=== PATIENT | female | born 1980 | race Caucasian/White ===

== ENCOUNTER 2024-03-29 10:25 | Emergency (ER) | payer BC ==
[2024-03-29] MEDS: Sodium Chloride 0.9% 10 ML Syringe FLUSH PRN (10:40)
[2024-03-29 10:50] LABS: BASOPHILS ABSOLUTE AUTO 0.1 x10-3/uL (0.0-0.1); BASOPHILS PERCENT AUTO 0.5 % (0.2-1.5); EOSINOPHILS ABSOLUTE AUTO 0.2 x10-3/uL (0.0-0.8); EOSINOPHILS PERCENT AUTO 1.9 % (0.6-8.1); HEMOGLOBIN 13.1 g/dL (11.4-15.5); LYMPHOCYTES ABSOLUTE AUTO 2.2 x10-3/uL (1.0-4.4); LYMPHOCYTES PERCENT AUTO 19.2 % (18.4-52.1); MEAN CORPUSCULAR HEMOGLOBIN 32.4 pg (23.9-33.9); MEAN CORPUSCULAR HGB CONC 33.7 g/dL (31.9-34.8); MEAN CORPUSCULAR VOLUME 96.2 fL (76.7-100.5); MEAN PLATELET VOLUME 7.8 fL (7.1-12.4); MONOCYTES ABSOLUTE AUTO 0.6 x10-3/uL (0.3-1.0); NEUTROPHILS ABSOLUTE AUTO 8.5 x10-3/uL (1.5-6.3); NEUTROPHILS PERCENT AUTO 73.4 % (30.8-76.2); PLATELET COUNT,PLT 228 x10(3)uL (151-488); RED BLOOD CELL COUNT 4.05 x10(6)uL (3.60-5.20); RED CELL DISTRIBUTION WIDTH 13.7 % (12.3-16.5); WHITE BLOOD CELL COUNT,WBC 11.6 x10-3/uL (3.0-10.3)
[2024-03-29] MEDS: Sodium Chloride 0.9% 1,000 ML IV ONE (10:52)
[2024-03-29] MEDS: LORazepam 2 MG/ML SDV IVPUSH ONE (10:52)
[2024-03-29 10:57] LABS: BLOOD UREA NITROGEN,BUN 15 mg/dL (7-18); BUN/CREATININE RATIO 21.4 (9-20); CARBON DIOXIDE,CO2 23 mmol/L (21-32); CHLORIDE,CL 105 mmol/L (100-110); CREATININE 0.7 mg/dL (0.55-1.02); ESTIMATED GFR 111 mL/min (>60); GLUCOSE RANDOM 119 mg/dL (80-116); POTASSIUM,K 3.9 mmol/L (3.5-5.3); SODIUM,NA 140 mmol/L (135-145)
[2024-03-29 11:08] LABS: A/G RATIO 1.1; ALANINE AMINOTRANSFERASE,ALT 28 U/L (12-36); ALKALINE PHOSPHATASE 86 IU/L (56-112); ASPARTATE AMNIOTRANSFERASE,AST 20 IU/L (5-25); BILIRUBIN TOTAL 0.5 mg/dL (0.1-1.3); PROTEIN TOTAL,TP 7.6 g/dL (6.0-8.0)
[2024-03-29] MEDS: Ondansetron 4 MG/2 ML SDV IVPUSH ONE (11:36)
[2024-03-29 13:31] VITALS: BP 119/76; PULSE 87
== END 2024-03-29 12:42 | disposition home or self-care (01) ==
LOC: FB.ED 10:25
DX: F41.0 Panic disorder [episodic paroxysmal anxiety] (principal); F17.210 Nicotine dependence, cigarettes, uncomplicated; Z79.899 Other long term (current) drug therapy
CPT/HCPCS: 36415; 80053; 84484; 85025; 86140; 93005; 93010; 96361; 96374; 96375; 99284; 99285; J2060; J2405; J3490; J7030